=== PATIENT | female | born 1985 | race African-American/Black ===

== ENCOUNTER 2018-08-22 19:12 | Emergency (ER) | payer OTHER ==
[~2018-08-22] VITALS: Ht 149.9 cm; Wt 72.6 kg
--- NOTE | ~2018-08-22 | EKG ---
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
[2018-08-22 20:31] LABS: HEMATOCRIT 40.7 % (37.0-47.0); HEMOGLOBIN 13.5 gm/dL (12.0-15.0); MCH 27.1 pg (26.0-34.0); MCHC 33.2 g/dL (28.0-37.0); MCV 81.7 fL (80.0-100.0); PLATELET COUNT 191 thou/uL (150-400); RBC 4.99 mil/uL (4.20-5.00); RDW 14.8 % (10.5-14.5); WBC 6.6 thou/uL (4.0-11.0)
[2018-08-22 20:39] LABS: ANION GAP 5 mmol/L (7-16); BUN 12 mg/dL (7-18); CALCIUM 8.9 mg/dL (8.5-10.1); CHLORIDE 105 mmol/L (98-107); CO2 28 mmol/L (21-32); CREATININE 0.9 mg/dL (0.6-1.0); GLUCOSE 104 mg/dL (74-106); POTASSIUM 3.8 mmol/L (3.5-5.1); SODIUM 138 mmol/L (136-145)
[2018-08-22 20:47] LABS: ALBUMIN 3.4 g/dL (3.4-5.0); LIPASE 360 U/L (73-393); SGOT 21 U/L (15-37); SGPT 25 U/L (30-65); TOTAL BILIRUBIN 0.2 mg/dL (<0.1-1.0); TOTAL PROTEIN 7.4 g/dL (6.4-8.2); TROPONIN-I <0.06 ng/mL (<0.06)
[2018-08-22 21:01] LABS: ABSOLUTE NEUTROPHILS 1.5 thou/uL (1.4-8.2)
[2018-08-22 21:02] LABS: LARGE PLATELETS SEVERAL
[2018-08-22] MEDS ORDERED: TRAMADOL 50 MG50 MG PO (21:18)
[2018-08-22] MEDS ORDERED: ZOFRAN ODT4 MG PO (21:18)
[2018-08-22] MEDS ORDERED: PEPCID20 MG PO (21:18)
[2018-08-22 21:43] VITALS: BP 98/40
== END 2018-08-22 22:03 | disposition home or self-care (01) ==
LOC: ER 19:12
PROVIDERS: Physician Assistant
DX: R07.9 Chest pain, unspecified (principal); R11.2 Nausea with vomiting, unspecified; J45.909 Unspecified asthma, uncomplicated; V89.2XXA Person injured in unspecified motor-vehicle accident, traffic, initial encounter; Y93.89 Activity, other specified; Y92.89 Other specified places as the place of occurrence of the external cause; Y99.8 Other external cause status